=== PATIENT | female | born 1975 | race Caucasian/White ===

== ENCOUNTER → 2017-01-30 | Outpatient (CLI) | payer MEDICARE | LOC: US 13:29 | DX: R93.8 Abnormal findings on diagnostic imaging of other specified body structures (principal) | CPT/HCPCS: 76830 ==

== ENCOUNTER → 2017-02-08 | Outpatient (CLI) | payer MEDICARE | LOC: MRI 02-07 10:15 | DX: N83.9 Noninflammatory disorder of ovary, fallopian tube and broad ligament, unspecified (principal); R10.814 Left lower quadrant abdominal tenderness; R93.8 Abnormal findings on diagnostic imaging of other specified body structures; N28.1 Cyst of kidney, acquired | CPT/HCPCS: 72197; 74183; A9577; J7050 ==

== ENCOUNTER → 2017-02-21 | Outpatient (CLI) | payer MEDICARE | LOC: CT 10:39 | DX: R39.89 Other symptoms and signs involving the genitourinary system (principal) | CPT/HCPCS: 36415; 82565; 84520; J7050; Q9962 ==

== ENCOUNTER 2021-11-13 11:05 | Emergency (ER) | payer MEDICARE ==
[~2021-11-13 11:05] MED LIST: NAPROSYN500 MG PO
== END 2021-11-13 14:18 | disposition home or self-care (01) ==
LOC: ER1 11:05
DX: S80.02XA Contusion of left knee, initial encounter (principal); Z90.49 Acquired absence of other specified parts of digestive tract; W01.0XXA Fall on same level from slipping, tripping and stumbling without subsequent striking against object, initial encounter
CPT/HCPCS: 29530; 73564; 99283